=== PATIENT | male | born 1950 | race Caucasian/White ===

== ENCOUNTER 2016-06-04 13:11 | Inpatient (IN) | payer BC, MEDICARE ==
--- NOTE | ~2016-06-04 | OP ---
Record Of Operation [facility] [address] [place]. [address] NAME: BRIDGETTE JOHNSON : 54 STATUS : DIS IN PAT#: [id number] AGE: 65 ADM/REG DATE : 06/04/16 MR#: [id number] REPORT SERV DATE: 06/07/16 DICTATED BY: TERESITA FOLEY JR. DATE: 06/07/16 REPORT STATUS : Draft TRANSCRIBED BY: MODNoemi DATE: 06/07/16 DATE OF PROCEDURE: 06/05/2016 Cardiac catheterization, saphenous vein graft injection, left internal mammary artery injection, ventriculogram, coronary angiography. INDICATION: Uncontrolled diabetes with coronary artery disease and acute coronary syndrome, class 4 angina, chest pain. ACCESS: Left femoral artery. EQUIPMENT: 6-Malian diagnostic sheath, Gabriel left and right catheter of 4.0, angled pigtail catheter of 4.0. IV CONSCIOUS SEDATION: 1 mg of IV Versed, 50 mcg of intravenous fentanyl. LOCAL ANESTHESIA: 20 mL of 1% Xylocaine to the left femoral groin region. FLUORO TIME: 3.5 minutes. RADIATION: 472 mGy. CONTRAST: 90 mL, intravenous. DISPOSITION: Cardiac short-stay. COMPLICATIONS: None. ESTIMATED BLOOD LOSS: Less than 5 mL. PROCEDURE IN DETAIL: After informed consent was obtained, the patient was taken to the cardiac catheterization lab where he was sterilely draped and prepped. Then, after IV conscious sedation and local anesthesia to the left groin, a 6-Malian diagnostic sheath was placed in the left femoral artery with modified Seldinger technique. Next, a Gabriel left catheter was advanced over the wire under fluoroscopy to the ostium of the left main coronary artery, via which angiography was performed in the AP, ARMENIAN caudal, AP caudal, THOMPSON caudal views. This catheter was then exchanged over wire under fluoroscopy for a Gabriel right catheter, via which the catheter was directed toward the right coronary artery ostium, then vein graft, and then directed with wire to the left internal mammary artery. Vein graft injections were imaged with cineangiography in the ARMENIAN and AP cranial views as well as THOMPSON caudal views. Left internal mammary artery was imaged in the AP and THOMPSON cranial views. This catheter was then exchanged for an angled pigtail catheter which was gently prolapsed across the aortic valve and wire into the left ventricle. Hemodynamic tracings were obtained and a 36 mL ventriculogram was performed in the THOMPSON view. The catheter was then withdrawn under pressure across the aortic valve. No aortic stenosis was visualized. Record Of Operation [facility] [address] [place]. [address] NAME: BRIDGETTE JOHNSON : 54 STATUS : DIS IN PAT#: [id number] AGE: 65 ADM/REG DATE : 06/04/16 MR#: [id number] REPORT SERV DATE: 06/07/16 DICTATED BY: TERESITA FOLEY JR. DATE: 06/07/16 REPORT STATUS : Draft TRANSCRIBED BY: ANYI DATE: 06/07/16 Procedure was concluded after hemostasis was achieved with manual pressure with suitable ACT. HEMODYNAMICS: Left ventricular end-diastolic pressure 28 mmHg. Left ventricular peak systolic pressure 100 mmHg. Aortic minimum diastolic pressure 70 mmHg. Aortic peak systolic pressure 120 mmHg. There is no gradient upon withdrawal of the catheter from the left ventricle to the aorta. ANGIOGRAPHY: Left main coronary artery: Moderate-sized vessel approximately 3 mm in diameter which bifurcates into a left anterior descending system. 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 The ramus intermedius, small vessel approximately 1.5 mm in diameter with 50% mid vessel stenosis and diffuse disease noted distally. Circumflex coronary artery: Moderate-sized vessel, codominant with 100% distal OM, which supply the left PDA, smaller accessory posterolateral branches off the distal circumflex are noted in less than 1 mm diameter. Right coronary artery, small to moderate diffusely diseased vessel up to 85% mid vessel giving rise to a small posterolateral branching artery described by the CT surgeon as an RV marginal because of its regional supply. JASON 2 flow was noted in this vessel. RV marginal arising off its vessel are small and delicate. Saphenous vein graft to the TLBA patent with JASON grade 3 flow noted distally. Saphenous vein graft to the distal left PDA OM patent with JASON grade 3 flow noted distally. CHAPMAN to the LAD patent with JASON grade 3 flow noted distally. The LAD is small, less than 2 mm in diameter approaching the crux and apex with mild to moderate diffuse disease. VENTRICULOGRAM: Preserved left ventricular systolic function with ejection fraction estimated approximately 60% with no obvious segmental wall motion abnormalities. IMPRESSION: 1. Patent saphenous vein grafts and patent CHAPMAN. 2. No new epicardial coronary artery disease demonstrated. 3. Normal LV systolic function with elevated left ventricular end-diastolic pressure. PLANS/RECOMMENDATIONS: 1. Medical management. 2. Cardiac risk factor reduction. 3. Cardiac rehab phase 3 recommended. LULU/ANYI Teresita Foley Jr., M.D. Record Of Operation [address] [address] NAME: BRIDGETTE JOHNSON : 54 STATUS : DIS IN PAT#: [id number] AGE: 65 ADM/REG DATE : 06/04/16 MR#: [id number] REPORT SERV DATE: 06/07/16 DICTATED BY: TERESITA FOLEY JR. DATE: 06/07/16 REPORT STATUS : Draft TRANSCRIBED BY: ANYI DATE: 06/07/16 / [id number] CC: Jr Mckeon Jr., M.D.
--- NOTE | ~2016-06-04 | HP ---
History And Physical [facility] [id number] [place]. [address] NAME: BRIDGETTE JOHNSON : 54 STATUS : ADM IN PAT#: [id number] AGE: 65 ADM/REG DATE : 06/04/16 MR#: [id number] REPORT SERV DATE: 06/05/16 DICTATED BY: TERESITA FOLEY JR. DATE: 06/04/16 REPORT STATUS : Draft TRANSCRIBED BY: MODNoemi DATE: 06/04/16 DATE OF ADMISSION: 06/04/2016 CHIEF COMPLAINT: Chest pain. HISTORY OF PRESENT ILLNESS: The patient is a 65-year-old white male with history of known epicardial coronary artery disease, status post prior CAB in June of 2015, multivessel who had a treadmill stress testing performed in November of 2015, which demonstrated no ischemia. He presents now via [facility] urgently with substernal chest pain, approximately 10 hours, waxing and waning, mid sternal, radiating to the neck and arm, which began the day prior to admission. He originally presented to [facility] and was noted to be hypertensive there. He reported to the ED that he had experienced nausea and vomiting without diarrhea. He received two sublingual nitroglycerin sprays and became abruptly hypotensive with worsened chest pain, which prompted vigorous intravenous hydration and emergently transported. Currently, he arrives pain free with no dyspnea and no diaphoresis. REVIEW OF SYSTEMS: A 10-point review of systems, otherwise, unremarkable. ALLERGIES: LISINOPRIL AND PENICILLIN G. MEDICATIONS: Include aspirin 81 mg daily, atorvastatin 40 mg daily, carvedilol 3.125 mg b.i.d., furosemide 40 mg daily, nitroglycerin sublingual tablets, Plavix 75 mg daily, spironolactone 100 mg half tablet daily, levothyroxine 125 mcg daily, Milk Thistle vitamin C 250 mg tablet daily, aripiprazole 20 mg daily, Xifaxan 550 mg b.i.d., Seroquel 100 mg half tablet daily, hydralazine 10 mg t.i.d., and Imdur 30 mg half tablet daily. Of note, after discussion with the family, it appears that he has not been taking any of his medications for the past several months and only recently began to take his beta-jin and aspirin. PAST MEDICAL HISTORY: Notable for history of coronary artery disease, hypertension, hyperlipidemia, hypothyroidism, diabetes mellitus, congestive heart failure, thrombocytopenia, tinea cruris, hypogonadism, bipolar disorder, and chronic psoriasis. PAST SURGICAL HISTORY: Notable for prior arteriography, hemorrhoidectomy, cardiac catheterization with subsequent CAB. FAMILY HISTORY: Notable for coronary artery disease in multiple family members. PAST SOCIAL HISTORY: Notable for tobacco use in the past. No ethanol use. PHYSICAL EXAMINATION: VITAL SIGNS: Blood pressure is 112/62, pulse is 70 and regular, and respirations 14. The patient is afebrile. HEENT: Unremarkable. NECK: Supple without jugular venous distention or carotid bruits. CARDIOVASCULAR SYSTEM: Regular rate and rhythm. No S3. No S4. History And Physical [address] [address] NAME: BRIDGETTE JOHNSON : 54 STATUS : ADM IN [facility]#: [id number] AGE: 65 ADM/REG DATE : 06/04/16 MR#: [id number] REPORT SERV DATE: 06/05/16 DICTATED BY: TERESITA FOLEY JR. DATE: 06/04/16 REPORT STATUS : Draft TRANSCRIBED BY: ANYI DATE: 06/04/16 CHEST: Normal with reproducible pain, left fourth costochondral interphase. LUNGS: Clear. ABDOMEN: Benign without hepatomegaly. EXTREMITIES: 1+ with no pedal edema. NEUROLOGIC: He is grossly intact. DIAGNOSTIC DATA: EKG is notable for sinus rhythm with incomplete right bundle-branch block, anterior lateral T-wave inversion which appears unchanged from prior tracings. Initial troponin is normal. Initial creatinine and serum potassium are normal. Glucose of 342. Other laboratories are pending. IMPRESSION: 1. A 65-year-old white male with acute chest pain syndrome, arriving via [facility] with history of recent coronary artery bypass in the past year with left internal mammary artery to the left anterior descending artery, saphenous vein graft to an acute marginal and saphenous vein graft to a second obtuse marginal with unstable angina reported at outside facility. 2. History of anemia. 3. History of hypertension. 4. History of obstructive sleep apnea. 5. History of dyslipidemia. 6. History of hypothyroidism. 7. Reported glucose of over 300 with prior use of insulin and suspected untreated, uncontrolled diabetes mellitus. PLANS AND RECOMMENDATIONS: 1. Intravenous hydration over the evening with plans for cardiac catheterization in the morning, earlier if symptoms should redevelop or if troponins become abnormal. He is aware of risk of 1% chance of , 1 in 500 chance of stroke, chance of bleeding or infection anytime we enter the skin or damage to heart, lungs, blood vessels, kidneys, and can sign consent. 2. Re-initiation of lactulose and spironolactone with possible consultation to Dr. Kane Teran. 3. Re-initiation of aspirin, Plavix, beta-jin, and hydralazine pending blood pressure with further recommendations to follow critical care versus hospitalist consultation for management of presumed uncontrolled diabetes mellitus. 4. We will resume Seroquel and Xifaxan. /ANYI Teresita Foley Jr., M.D. / [id number] History And Physical [address] [address] NAME: BRIDGETTE JOHNSON : 54 STATUS : ADM IN PAT#: [id number] AGE: 65 ADM/REG DATE : 06/04/16 MR#: [id number] REPORT SERV DATE: 06/05/16 DICTATED BY: TERESITA FOLEY JR. DATE: 06/04/16 REPORT STATUS : Draft TRANSCRIBED BY: ANYI DATE: 06/04/16 CC: Jr Mckeon Jr., M.D.
--- NOTE | ~2016-06-04 | ECH ---
Echocardiogram [facility] [address] [place]. [address] NAME: BRIDGETTE JOHNSON : 54 STATUS : ADM IN PAT#: [id number] AGE: 65 ADM/REG DATE : 06/04/16 MR#: [id number] REPORT SERV DATE: 06/05/16 DICTATED BY: TERESITA FOLEY JR. DATE: 06/05/16 REPORT STATUS : Draft TRANSCRIBED BY: MODNoemi DATE: 06/05/16 DATE OF ACQUISITION: 06/04/2016. CCU bed 12. TECH: Rayna Anton [facility]. INDICATIONS: Chest pain. 2-D INTERPRETATION: M-mode and 2-dimensional echocardiography were performed. The left atrium was normal in size measuring 3.1 cm compared to an aortic root diameter of 2.9 cm. The left ventricle was normal in size measuring 3.9 cm in end-diastole, and 2.6 cm in end- systole. Overall, there appeared to be normal left ventricular systolic function without regional wall motion abnormality with ejection fraction of 60%. The aortic valve was trileaflet. The mitral valve appeared to be structurally normal. The remaining cardiac valves appeared to be structurally normal. No obvious pericardial or pleural effusion could be seen. No intracardiac mass could be identified. Definity contrast imaging agent was utilized to enhance the endocardial borders secondary to attenuation. DOPPLER/COLOR FLOW: Conventional and Doppler color flow imaging was performed. Mitral inflow pattern appeared to be mildly abnormal in dimension for the patient's age. There was no significant mitral insufficiency. There was trace tricuspid insufficiency. Peak gradient across the aortic valve measured 5 mmHg. There was no aortic insufficiency. There was no pulmonic insufficiency. The pulmonary valve was not well-visualized. The subcostal images were not able to be performed. CONCLUSION: NORMAL LEFT VENTRICULAR SYSTOLIC FUNCTION WITH DIMINISHED LEFT VENTRICULAR COMPLIANCE. NO SIGNIFICANT VALVULAR DISEASE. NO EVIDENCE OF PULMONARY HYPERTENSION. DEFINITY CONTRAST IMAGING AGENT WAS UTILIZED. LULU/ANYI Teresita Foley Jr., M.D. / [id number] CC: Teresita Foley Jr., M.D.
[~2016-06-04 13:11] MED LIST: ABILIFY20 MG PO; ABILIFY30 MG PO; ACTOS45 PO; ASAB PO; ATV.5 PO; COREG3 PO; FERROUS SULF325 M1 PO; GLUCPH PO; IMDUR30 PO; IRON325 MG PO; L20 PO; LACT30UDL PO; LANTUS SC; LEVOTHROID150 MCG PO; LEVOTHYROXIN100 MCG PO; LEVOTHYROXIN125 MCG PO; LIPITOR20 PO; LIPITOR40 PO; MILK THISTLE PO; NEUR300 PO; NITROSTAT0.4 MG SL; PCET PO; PLAVIX PO; PRIN2.5 PO; SEROQUEL1C PO; SEROQUEL200 MG PO; SPIRO50 PO; VITAMIN D1000 UNI1 PO; VITC500 PO; XIFAXAN550 MG PO; ZETIA PO
[2016-06-04 14:28] LABS: BUN (BLOOD UREA NITROGEN) 19 MG/DL (6-23); CALCIUM, SERUM 8.3 MG/DL (8.5-10.4); CHLORIDE, SERUM 101 MMOL/L (96-112); CO2 (CARBON DIOXIDE) 31 MMOL/L (24-34); CREATININE 1.27 MG/DL (0.70-1.30); GFR AFRICAN AMERICAN 69 ML/MIN (>=60); GFR NON AFRICAN AMERICAN 60 ML/MIN (>=60); POTASSIUM, SERUM 4.2 MMOL/L (3.5-5.3); SGOT(AST) 21 U/L (5-40); SGPT(ALT) 27 U/L (5-65); SODIUM, SERUM 135 MMOL/L (135-148); TOTAL PROTEIN 7.3 G/DL (6.0-8.5); TROPONIN I <0.02 NG/ML (<0.05)
[2016-06-04 14:29] LABS: A/G RATIO 1.1 (0.7-1.9); ALBUMIN 3.8 G/DL (3.5-5.0); ALKALINE PHOSPHATASE 113 U/L (45-117); CK-MB 2.5 NG/ML; CPK 198 U/L (0-200); GLOBULIN 3.5 G/DL (2.5-4.1); GLUCOSE, SERUM 266 MG/DL (60-99); PHOSPHORUS, SERUM 2.7 MG/DL (2.5-4.5); TOTAL BILIRUBIN 0.7 MG/DL (0-1.2)
[2016-06-04 14:44] LABS: BASOPHILS 0.4 %; BASOPHILS ABSOLUTE 0.02 10/3/uL (0.0-0.16); EOSINOPHILS 3.8 %; EOSINOPHILS ABSOLUTE 0.21 10/3/uL (0.0-0.53); HEMATOCRIT 37.6 % (40.0-51.0); HEMOGLOBIN 13.7 g/dL (13.6-17.8); IMMATURE GRANULOCYTES 0.4 %; IMMATURE GRANULOCYTES ABSOLUTE 0.02 10/3/uL (0.0-0.11); LYMPHOCYTES 35.9 %; LYMPHOCYTES ABSOLUTE 1.97 10/3/uL (0.67-4.30); MEAN CORPUSCULAR HEMOGLOB 28.8 pg (26.0-34.0); MEAN PLATELET VOLUME 9.2 fL (9.2-13.0); MONOCYTES 5.5 %; NEUTROPHILS ABSOLUTE 2.96 10/3/uL (2.02-8.40); PLATELET COUNT 97 10/3/uL (150-400); RBC DISTRIBUTION WIDTH 13.6 % (12.0-16.0); RED CELL COUNT 4.76 10/6/uL (4.7-6.1); WHITE BLOOD CELLS 5.5 10/3/uL (4.5-10.5)
[2016-06-04 14:45] LABS: MANUAL DIFF NO %; MEAN CORPUS HGB CONC 36.4 g/dL (32.0-36.0)
[2016-06-04 17:41] LABS: INTERNATIONAL NORMAL RATI 1.2 UNITS (-); PARTIAL THROMBO TIME 28.8 SEC (22.5-37.2); PROTIME (NOT ORD) 14.8 SEC (12.0-14.5)
[2016-06-04] MEDS ORDERED: NITROSTAT0.4 MG SL (17:57)
[2016-06-04 18:08] LABS: WBC (NOT ORDERED) (RFLEX) 0 (0-5)
[2016-06-04 18:08] LABS: T4 (THYROXINE) TOTAL 2.8 MCG/DL (4.5-12.0)
[2016-06-04 19:15] LABS: ASCORBIC ACID (UR NOT ORDER) NEG (NEG); BILIRUBIN, URINE NEGATIVE (NEG); KETONE, URINE NEGATIVE (NEG); LEUKOCYTE ESTERASE(NOT OR NEG (NEG)
[2016-06-04 23:26] LABS: TROPONIN I <0.02 NG/ML (<0.05)
[2016-06-04 23:28] LABS: CK-MB 2.3 NG/ML; CPK 172 U/L (0-200)
[2016-06-05 04:41] LABS: BASOPHILS 0.3 %; BASOPHILS ABSOLUTE 0.01 10/3/uL (0.0-0.16); EOSINOPHILS 3.6 %; EOSINOPHILS ABSOLUTE 0.12 10/3/uL (0.0-0.53); HEMATOCRIT 34.9 % (40.0-51.0); HEMOGLOBIN 12.9 g/dL (13.6-17.8); IMMATURE GRANULOCYTES 0.3 %; IMMATURE GRANULOCYTES ABSOLUTE 0.01 10/3/uL (0.0-0.11); LYMPHOCYTES 44.6 %; LYMPHOCYTES ABSOLUTE 1.49 10/3/uL (0.67-4.30); MEAN CORPUSCULAR HEMOGLOB 29.3 pg (26.0-34.0); MEAN CORPUSCULAR VOLUME 79.1 fL (80-100); MONOCYTES 4.2 %; MONOCYTES ABSOLUTE 0.14 10/3/uL (0.21-1.20); NEUTROPHILS ABSOLUTE 1.57 10/3/uL (2.02-8.40); RBC DISTRIBUTION WIDTH 13.7 % (12.0-16.0); RED CELL COUNT 4.41 10/6/uL (4.7-6.1); WHITE BLOOD CELLS 3.3 10/3/uL (4.5-10.5)
[2016-06-05 04:43] LABS: MANUAL DIFF NO %; PLATELET COUNT 66 10/3/uL (150-400)
[2016-06-05 05:22] LABS: BUN (BLOOD UREA NITROGEN) 18 MG/DL (6-23); CALCIUM, SERUM 8.4 MG/DL (8.5-10.4); CHLORIDE, SERUM 101 MMOL/L (96-112); CHOL/HDL RATIO(NOT ORDER) 4.3 (0-5); CHOLESTEROL 130 MG/DL (< 200); CREATININE 1.04 MG/DL (0.70-1.30); GFR AFRICAN AMERICAN 88 ML/MIN (>=60); GFR NON AFRICAN AMERICAN 76 ML/MIN (>=60); GLUCOSE, SERUM 218 MG/DL (60-99); HDL CHOLESTEROL 30 MG/DL (> 39); LDL CHOLESTEROL 45 MG/DL (< 130); NON-HDL CHOLESTEROL 100 MG/DL (< 160); POTASSIUM, SERUM 3.7 MMOL/L (3.5-5.3); SGPT(ALT) 24 U/L (5-65); SODIUM, SERUM 135 MMOL/L (135-148); TRIGLYCERIDE 278 MG/DL (< 150); TROPONIN I <0.02 NG/ML (<0.05)
[2016-06-05 05:33] LABS: CK-MB 2.1 NG/ML; CO2 (CARBON DIOXIDE) 25 MMOL/L (24-34); CPK 141 U/L (0-200)
[2016-06-05 05:38] LABS: PARTIAL THROMBO TIME > 150.0 SEC (22.5-37.2)
[2016-06-05 05:49] LABS: PLATELET ESTIMATE DEC (ADEQUATE)
[2016-06-05 05:50] LABS: RBC MORPHOLOGY NORM (NORMAL)
[2016-06-05 06:28] LABS: PHOSPHORUS, SERUM 4.3 MG/DL (2.5-4.5)
[2016-06-05] MEDS ORDERED: ACTOS45 PO (10:37)
[2016-06-05] MEDS ORDERED: NITROQUICK0.4 MG SL (10:39)
[2016-06-05 15:03] LABS: CPK 157 U/L (0-200); TROPONIN I <0.02 NG/ML (<0.05)
[2016-06-05 15:09] LABS: CK-MB 2.2 NG/ML
[2016-06-05 22:20] LABS: CK-MB 2.2 NG/ML; CPK 170 U/L (0-200); TROPONIN I <0.02 NG/ML (<0.05)
[2016-06-06 04:50] LABS: BASOPHILS 0.8 %; BASOPHILS ABSOLUTE 0.03 10/3/uL (0.0-0.16); EOSINOPHILS 4.8 %; EOSINOPHILS ABSOLUTE 0.18 10/3/uL (0.0-0.53); HEMATOCRIT 34.5 % (40.0-51.0); HEMOGLOBIN 12.3 g/dL (13.6-17.8); IMMATURE GRANULOCYTES 0.3 %; IMMATURE GRANULOCYTES ABSOLUTE 0.01 10/3/uL (0.0-0.11); LYMPHOCYTES 33.6 %; LYMPHOCYTES ABSOLUTE 1.25 10/3/uL (0.67-4.30); MEAN CORPUS HGB CONC 35.7 g/dL (32.0-36.0); MEAN CORPUSCULAR HEMOGLOB 28.5 pg (26.0-34.0); MEAN PLATELET VOLUME 8.9 fL (9.2-13.0); MONOCYTES 4.8 %; MONOCYTES ABSOLUTE 0.18 10/3/uL (0.21-1.20); NEUTROPHILS 55.7 %; NEUTROPHILS ABSOLUTE 2.07 10/3/uL (2.02-8.40); PLATELET COUNT 76 10/3/uL (150-400); RBC DISTRIBUTION WIDTH 13.9 % (12.0-16.0); RED CELL COUNT 4.31 10/6/uL (4.7-6.1); WHITE BLOOD CELLS 3.7 10/3/uL (4.5-10.5)
[2016-06-06 04:54] LABS: MANUAL DIFF NO %
[2016-06-06 05:06] LABS: BUN (BLOOD UREA NITROGEN) 18 MG/DL (6-23); CALCIUM, SERUM 8.2 MG/DL (8.5-10.4); CHLORIDE, SERUM 103 MMOL/L (96-112); CHOL/HDL RATIO(NOT ORDER) 4.2 (0-5); CHOLESTEROL 129 MG/DL (< 200); CO2 (CARBON DIOXIDE) 26 MMOL/L (24-34); CREATININE 1.01 MG/DL (0.70-1.30); GFR AFRICAN AMERICAN 91 ML/MIN (>=60); GFR NON AFRICAN AMERICAN 79 ML/MIN (>=60); HDL CHOLESTEROL 31 MG/DL (> 39); LDL CHOLESTEROL 51 MG/DL (< 130); NON-HDL CHOLESTEROL 98 MG/DL (< 160); POTASSIUM, SERUM 3.7 MMOL/L (3.5-5.3); SODIUM, SERUM 135 MMOL/L (135-148); TRIGLYCERIDE 238 MG/DL (< 150)
[2016-06-06 05:07] LABS: GLUCOSE, SERUM 112 MG/DL (60-99)
[2016-06-06] MEDS ORDERED: PROTONIX PO (09:04)
[2016-06-06] MEDS ORDERED: SPIRO25 PO (09:05)
[2016-06-06] MEDS ORDERED: IMDUR30 PO (09:07)
[2016-06-06] MEDS ORDERED: PRIN2.5 PO (09:08)
[2016-06-06] MEDS ORDERED: NOVOLOG SC (09:10)
[2016-06-06] MEDS ORDERED: LANTUSCART SC (09:25)
== END 2016-06-06 10:27 | disposition home or self-care (01) | DRG 287 ==
LOC: CORLMH 13:11 → CCU 13:13 → 5NO 06-05 16:52
PROVIDERS: Internal Medicine Cardiovascular Disease
PROC: 4A023N7 Measurement of Cardiac Sampling and Pressure, Left Heart, Percutaneous Approach (ICD-10-PCS; principal; 2016-06-05)
PROC: B2111ZZ Fluoroscopy of Multiple Coronary Arteries using Low Osmolar Contrast (ICD-10-PCS; 2016-06-05)
PROC: B2151ZZ Fluoroscopy of Left Heart using Low Osmolar Contrast (ICD-10-PCS; 2016-06-05)
PROC: B2131ZZ Fluoroscopy of Multiple Coronary Artery Bypass Grafts using Low Osmolar Contrast (ICD-10-PCS; 2016-06-05)
DX: I25.110 Atherosclerotic heart disease of native coronary artery with unstable angina pectoris (principal); I11.0 Hypertensive heart disease with heart failure; I50.9 Heart failure, unspecified; E11.65 Type 2 diabetes mellitus with hyperglycemia; G47.33 Obstructive sleep apnea (adult) (pediatric); E03.9 Hypothyroidism, unspecified; Z95.1 Presence of aortocoronary bypass graft; Z79.82 Long term (current) use of aspirin; Z79.02 Long term (current) use of antithrombotics/antiplatelets; Z79.4 Long term (current) use of insulin; E78.5 Hyperlipidemia, unspecified; F31.9 Bipolar disorder, unspecified
CPT/HCPCS: 71010; 80048; 80053; 80061; 81001; 82140; 82330; 82550; 82553; 82962; 83036; 83735; 84100; 84436; 84443; 84460; 84484; 85025; 85347; 85610; 85730; 87641; 93005; 93459; 99152; A9270-GY; C1769; C1894; C8929; J0583; J2250; J3010; Q9957; Q9967